=== PATIENT | male | born 1955 | race Caucasian/White ===

== ENCOUNTER 2019-08-05 00:33 | Emergency (ER) | payer SELFPAY ==
[2019-08-05 00:58] LABS: BILIRUBIN,URINE NEGATIVE (NEGATIVE); GLUCOSE, URINE (UA) NEGATIVE (NEGATIVE); KETONES,URINE (UA) NEGATIVE (NEGATIVE); LEUKOCYTE ESTERASE, URINE NEGATIVE (NEGATIVE); NITRITE,URINE NEGATIVE (NEGATIVE); OCCULT BLOOD,URINE LARGE (NEGATIVE); PH,URINE 6.5 PH (5.0-7.5); PROTEIN,URINE TRACE mg/dL (NEGATIVE); UROBILINOGEN,URINE 0.2 (NORMAL) E.U./dL (NORMAL)
[2019-08-05 00:59] LABS: CLARITY,URINE HAZY (CLEAR)
[2019-08-05 01:04] LABS: BACTERIA,URINE None Seen /HPF (None Seen); RBC,URINE TNTC /HPF (0-5); SQUAMOUS EPITHELIAL CELL,UR RARE Squamous (<= Few)
--- NOTE | 2019-08-05 01:05 | ED Physician Documentation ---
PD HPI MALE - Stated complaint Stated Complaint: MALE /ABD PX - Chief complaint Chief Complaint: Abd Pain - History obtained from History obtained from: Patient - History of Present Illness Timing - onset: Today Timing - duration: Hours (24) Timing - details: Abrupt onset Pain level now: 8 Associated symptoms: Hematuria, Testiclar pain, Abdominal pain, Back pain. No: Dysuria Similar symptoms before: Has not had sx before Recently seen: Not recently seen - Additional information Additional information: This is a 63-year-old man who presents with complaints that he was awakened in the middle of the night about 24 hours ago with pain in his left side front and back that was sharp and stabbing. Eased off and was intermittent for a while and then he went into the bathroom and urinated blood and then the pain has been pretty much constant since then. Rates pain an 8 out of 10. He took Tylenol for it which did nothing he is nauseous but had no vomiting. The pain is now radiating down into the left groin and the testicle. The testicle is not swollen or painful to touch. Denies history of kidney stone. He has not had a cough or chest pain. He is not felt dizzy. He is not diabetic. He works at [employer]. Review of Systems Constitutional: denies: Fever Eyes: denies: Loss of vision Cardiac: denies: Chest pain / pressure Respiratory: denies: Cough GI: reports: Abdominal Pain, Nausea. denies: Vomiting, Diarrhea : reports: Hematuria. denies: Dysuria Skin: denies: Rash Musculoskeletal: reports: Back pain PD PAST MEDICAL HISTORY - Allergies Allergies/Adverse Reactions: Allergies Allergy/AdvReac Type Severity Reaction Status Date / Time ketorolac Allergy Respiratory Verified 08/05/19 00:41 ciprofloxacin [From Cipro] AdvReac Rash Verified 08/05/19 00:41 promethazine [From Phenergan] AdvReac Unknown Verified 08/05/19 00:41 PD ED PE NORMAL - Vitals Vital signs reviewed: Yes - General General: Alert and oriented X 3, No acute distress, Well developed/nourished, Other (Thin 63-year-old man) - HEENT HEENT: Atraumatic, PERRL - Cardiac Cardiac: RRR, Other (There is a 2/6 systolic murmur heard throughout the precordium) - Respiratory Respiratory: No respiratory distress, Clear bilaterally - Abdomen Abdomen: Normal bowel sounds, Other (Hold his abdomen musculature tight with voluntary guarding.) - Male Male : Deferred - Back Back: Other (He has left costovertebral angle tenderness) - Derm Derm: Normal color, Warm and dry, No rash - Extremities Extremities: No edema - Neuro Neuro: Alert and oriented X 3, No motor deficit, No sensory deficit, Normal speech Results - Vitals Vitals: Vital Signs - 24 hr 08/05/19 08/05/19 00:36 04:02 Temperature 36.7 C 36.6 C Heart Rate 123 H 71 Respiratory 18 17 Rate Blood Pressure 149/90 H 129/93 H O2 Saturation 100 100 Oxygen O2 Source Room air - Labs Labs: Laboratory Tests 08/05/19 08/05/19 08/05/19 00:50 01:10 01:30 WBC 6.0 RBC 4.20 L Hgb 12.5 L Hct 39.6 L MCV 94.3 H MCH 29.8 MCHC 31.6 L RDW 14.9 Plt Count 267 MPV 9.0 Neut # (Auto) 3.1 Lymph # (Auto) 1.9 Elbert # (Auto) 0.8 Eos # (Auto) 0.2 Baso # (Auto) 0.1 Absolute Nucleated RBC 0.00 Nucleated RBC % 0.0 Sodium 139 Potassium 3.6 Chloride 104 Carbon Dioxide 27 Anion Gap 8.0 BUN 9 Creatinine 1.0 Estimated GFR (MDRD) 75 L Glucose 84 Calcium 9.4 Total Bilirubin 0.7 AST 20 ALT 15 Alkaline Phosphatase 61 Total Protein 7.6 Albumin 4.2 Globulin 3.4 Albumin/Globulin Ratio 1.2 Lipase 30 Urine Color YELLOW Urine Clarity HAZY Urine pH 6.5 Ur Specific [place] <=1.005 Urine Protein TRACE Urine Glucose (UA) NEGATIVE Urine Ketones NEGATIVE Urine Occult Blood LARGE H Urine Nitrite NEGATIVE Urine Bilirubin NEGATIVE Urine Urobilinogen 0.2 (NORMAL) Ur Leukocyte Esterase NEGATIVE Urine RBC TNTC H Urine WBC 0-3 Ur Squamous Epith Cells RARE Squamous Urine Bacteria None Seen Ur Microscopic Review INDICATED Urine Culture Comments NOT INDICATED - Rads (name of study) CT abd/pelvis Radiology: See rad report (No kidney stone.) PD MEDICAL DECISION MAKING - ED course Complexity details: reviewed results, re-evaluated patient, d/w patient, d/w family ED course: Patient was given a liter of normal saline. He is allergic to Toradol that causes difficulty breathing so he was treated with 1 mg of Dilaudid and 4 of Zofran under the suspicion that he had a kidney stone. Urine came back with too numerous to count red blood cells and it essentially no white blood cells. His CBC is normal with a normal white blood cell count and his comprehensive metabolic panel and lipase are all normal. CT scan did not confirm the presence of a kidney stone. There is a small bit of bowel in the left lower quadrant that possibly had some inflammatory changes around it. I went back and reevaluated the patient he said the Dilaudid had initially brought the pain down to a 2 but it was now back up again to a 9 out of 10. Examined his testicle it was not swollen or painful. Discussed with him the results of the imaging and that I would not provide a prescription for any narcotic pain medications. He says he is been staying for the past 6 months up in [place] with his aunt and uncle but over the past several weeks he is been here on [facility] staying with his sister. He is referred for follow-up with urology due to the hematuria. Encouraged to obtain a primary care provider. Departure - Departure Disposition: 01 Home, Self Care Clinical Impression: Hematuria, Abdominal pain Condition: Good Instructions: ED Abdominal Pain Unkn Cause Follow-Up: [facility] [Provider Group] Urology,Clinic [Other] Comments: You should make an appointment for follow-up with the urologist regarding the blood in your urine that we have not found the source of. Be sure to drink plenty of water. Tylenol if needed for pain. If you need further pain management you should establish with a primary care provider. Discharge Date/Time: 08/05/19 04:34
[2019-08-05] MEDS ORDERED: ONDANSETRON 4 MG/2 ML VIAL IVP STA (01:16)
[2019-08-05] MEDS ORDERED: SODIUM CHLORIDE 0.9% 1,000 ML IV ONE (01:16)
[2019-08-05] MEDS ORDERED: HYDROmorphone 1 MG/ML CARPUJECT IVP STA ×2 (01:16→03:46)
[2019-08-05 01:29] LABS: BASOPHILS # (AUTO) 0.1 10^3/uL (0.0-0.1); BASOPHILS % (AUTO) 1.2 %; EOSINOPHILS # (AUTO) 0.2 10^3/uL (0.0-0.7); EOSINOPHILS % (AUTO) 3.8 %; HGB - HEMOGLOBIN 12.5 g/dL (14.0-18.0); LYMPHOCYTES # (AUTO) 1.9 10^3/uL (1.5-3.5); LYMPHOCYTES % (AUTO) 30.8 %; MEAN CORPUSCULAR HEMOGLOBIN 29.8 pg (27.0-31.0); MEAN CORPUSCULAR HGB CONC 31.6 g/dL (32.0-36.0); MEAN CORPUSCULAR VOLUME 94.3 fL (80.0-94.0); MONOCYTES # (AUTO) 0.8 10^3/uL (0.0-1.0); MONOCYTES % (AUTO) 12.5 %; NEUTROPHILS # (AUTO) 3.1 10^3/uL (1.5-6.6); NEUTROPHILS % (AUTO) 51.5 %; PLT - PLATELET COUNT 267 10^3/uL (130-450); RED CELL DISTRIBUTION WIDTH 14.9 % (12.0-15.0)
[2019-08-05 01:54] LABS: ALBUMIN 4.2 g/dL (3.2-5.5); ALBUMIN/GLOBULIN RATIO 1.2 (1.0-2.2); BILIRUBIN,TOTAL 0.7 mg/dL (0.2-1.0); CALCIUM 9.4 mg/dL (8.5-10.3); TOTAL PROTEIN 7.6 g/dL (6.7-8.2)
--- NOTE | 2019-08-05 02:31 | CT Report ---
Reason: left flank pain Procedure Date: 08/05/2019 Accession Number: [id number] / [id number] Procedure: CT - Abdomen/Pelvis WO CPT Code: FULL RESULT: EXAM: CT ABDOMEN AND PELVIS (CT KUB) EXAM DATE: 08/05/2019 02:02 AM. CLINICAL HISTORY: Left flank pain. COMPARISONS: None. TECHNIQUE: Routine axial helical CT imaging was performed through the abdomen and pelvis without IV contrast. Reconstructions: Coronal and sagittal. In accordance with CT protocol optimization, one or more of the following dose reduction techniques were utilized for this exam: automated exposure control, adjustment of mA and/or KV based on patient size, or use of iterative reconstructive technique. FINDINGS: Lung Bases: Mild linear atelectasis in left lower lobe. Otherwise no acute abnormality of visualized lung bases. Right Kidney/Ureter: No stones, hydronephrosis, or hydroureter. No perinephric fat stranding. Left Kidney/Ureter: No stones, hydronephrosis, or hydroureter. No perinephric fat stranding. Other Solid Organs: Noncontrast images of the solid organs are grossly unremarkable. Gallbladder/Bile Ducts: Unremarkable. Peritoneal Cavity: Moderate amount of gastric contents. Possible wall/fold thickening along greater curvature of stomach. Moderate stool in colon. Colonic diverticula without evidence of acute diverticulitis. Mildly dilated small bowel loop with air-fluid level in left lower quadrant without distinct transition point evident. No free fluid, free air or soo adenopathy. Appendix not identified compatible with history of appendectomy. Pelvic Organs: No bladder stones or wall thickening. Prostate mildly enlarged measuring 5.1 cm transverse. Vasculature: Atherosclerotic vascular disease. No abdominal aortic aneurysm. Other: Mild degenerative changes of spine. IMPRESSION: 1. No urinary tract stones or obstruction to account for left flank pain. 2. Wall/fold thickening versus underdistention along greater curvature of stomach. Focal gastritis or other process not excluded. Correlate clinically. 3. Mildly dilated small bowel loop with air-fluid level in left lower quadrant without transition point visualized. Nonspecific enteritis, focal ileus or partial/early obstruction not excluded. 4. Colonic diverticula without evidence of acute diverticulitis. 5. Moderate stool in colon. Correlate for constipation. 6. Mild prostatomegaly. RADIA
[2019-08-05 04:04] VITALS: BP 129/93
== END 2019-08-05 04:34 | disposition home or self-care (01) ==
LOC: ED 00:33
DX: R31.0 Gross hematuria (principal); R10.9 Unspecified abdominal pain
CPT/HCPCS: 36415; 74176; 80053; 81001; 83690; 85025; 96361; 96374; 96375; 96376; 99284; J1170; 81003; 87086